=== PATIENT | male | born 1960 | race Hispanic/Latino ===

== ENCOUNTER → 2024-04-02 | Outpatient (CLI) | payer OTHER | END | disposition home or self-care (01) | LOC: RAH 13:26 | PROVIDERS: ATTEND Orthopaedic Surgery | DX: I70.201 Unspecified atherosclerosis of native arteries of extremities, right leg (principal); M17.11 Unilateral primary osteoarthritis, right knee | CPT/HCPCS: 93926 ==

== ENCOUNTER 2025-07-29 11:43 | Emergency (ER) | payer MEDICARE, OTHER ==
[~2025-07-29] VITALS: Ht 175.3 cm; Wt 95.3 kg
[2025-07-29 11:45] VITALS: BP 147/73; PULSE 65; RESP 20; TEMP 97.8
[2025-07-29] MEDS ORDERED: CLIN-141 PO (11:51)
[2025-07-29] MEDS ORDERED: IBUP-2077 PO (11:51)
--- NOTE | 2025-07-29 11:52 | ERN ---
ED Note History of Present Illness Stated Complaint: TOOTHACHE Chief Complaint: Tooth Ache/Pain Time Seen by MD: 11:45 Dictation: PATIENT IS A 65-YEAR-OLD MALE COMING IN WITH DENTAL PAIN TO TOOTH 14. THAT HE HAS HAD FOR SEVERAL WEEKS. THE TOOTH IS DECAY DOWN TO THE GUMLINE WITH MILD GINGIVAL ERYTHEMA. NO FACIAL SWELLING NO FEVER NO CHILLS NO NAUSEA VOMITING. STATES HE CALLED HIS DENTIST THIS MORNING AND HIS DENTIST CAN SEE HIM NEXT FRIDAY. Past Medical History RN Note Reviewed/Agreed w/PFSH: Yes Review of System Dictation CONSTITUTIONAL: NEGATIVE EXCEPT FOR HPI HEAD/FACE: NEGATIVE EXCEPT FOR HPI EENT: NEGATIVE EXCEPT FOR HPI DENTAL PAIN RESPIRATORY: NEGATIVE EXCEPT FOR HPI GASTROINTESTINAL/ABDOMINAL: NEGATIVE EXCEPT FOR HPI GENITOURINARY: NEGATIVE EXCEPT FOR HPI MUSCULOSKELETAL: NEGATIVE EXCEPT FOR HPI INTEGUMENTARY: NEGATIVE EXCEPT FOR HPI NEUROLOGICAL/PSYCH: NEGATIVE EXCEPT FOR HPI HEMATOLOGIC/LYMPHATIC: NEGATIVE EXCEPT FOR HPI ALL SYSTEMS NEGATIVE, EXCEPT NOTED ABOVE. 13 POINT REVIEW OF SYSTEMS ASSESSED AND ALL NEGATIVE EXCEPT FOR ABOVE. Physical Exam Dictation VITAL SIGNS REVIEWED GENERAL APPEARANCE: ALERT, ORIENTED X 3, NO ACUTE DISTRESS, WELL DEVELOPED, N OURISHED. HEAD AND FACE: NON-TRAUMATIC. EYES: PERRL, PINK CONJUNCTIVAS, EYELID NO TRAUMA, ANTERIOR CHAMBER WITH ARCUS SENILIS. EARS: PINNAS INTACT AND NO SIGNS OF TRAUMA OR ERYTHEMA EAR CANALS CLEAR AND NO DISCHARGE TM NO ERYTHEMA NOSE: NO DISCHARGE, NO BLEEDING. OROPHARYNX: MOUTH NORMAL, TONGUE PINK, PATIENT HAS A DECAY TOOTH DOWN TO THE GUMLINE NUMBER 14. MILD GINGIVAL ERYTHEMA. PHARYNX CLEAR,NO ERYTHEMA, TONSILS NO EXUDATES, NO ABSCESSES NOTED, MUCOUS MEMBRANE MOIST NECK: SUPPLE, NON-TENDER, NO THYROMEGALY, NO MASSES, NO JVD, NO BRUITS BREAST:DEFERRED CHEST:NO TENDERNESS, NO CREPITUS, NO PARADOXICAL MOVEMENT, NO RETRACTIONS LUNGS:CLEAR, WELL-VENTILATED, SYMMETRIC, NO RALES, NO WHEEZING, NO RHONCHI, NO STRIDOR, GOOD BREATH SOUNDS BILATERALLY HEART: REGULAR RATE, REGULAR RHYTHM, NO MURMUR, NO GALLOPS VASCULAR: NO PERIPHERAL EDEMA, ABDOMEN: SOFT, POSITIVE BOWEL SOUNDS, NONDISTENDED, NO GUARDING, NONTENDER, NO REBOUND, NO MASSES NO HEPATOMEGALY, NO SPLENOMEGALY, NO WYNN'S SIGN, NO HERNIAS. RECTAL: DEFERRED GENITAL: DEFERRED NEUROLOGICAL: NORMAL SPEECH, MOTOR FUNCTION INTACT, SENSORY FUNCTION INTACT MUSCULOSKELETAL: NECK NONTENDER, FULL RANGE OF MOTION, BACK NONTENDER, FULL RANGE OF MOTION, EXTREMITIES: NONTENDER, FULL RANGE OF MOTION SKIN: COLOR PINK, DRY, NO TURGOR, NO RASH, NO LACERATIONS, NO ABRASIONS, NO CONTUSIONS. LYMPHATIC: DEFERRED Results (Laboratory/Radiology) Labs Reviewed?: Yes ED Course ED Course Orders Procedure Category Date Status Time Acetaminophen 500mg PHA 07/29/25 Transmitted Tab (Tylenol 500mg T 12:00 1150/SPOKE TO PATIENT AT LENGTH AND HE IS AWARE THAT THERE IS NO DENTAL AVAILABILITY IN THE EMERGENCY ROOM. I TOLD HIM I COULD TREAT HIM FOR DENTALGIA AND INFECTION WITH CLINDAMYCIN FOLLOW UP WITH HIS PRIMARY CARE DOCTOR DENTIST FOR FURTHER EVALUATION AND MANAGEMENT Medical Decision Making MDM MEDICAL DECISION-MAKING BASED ON HPI AND PHYSICAL EXAMINATION. PATIENT WAS PROVIDED TYLENOL FOR PAIN DISCHARGED HOME WITH CLINDAMYCIN 300 MG Q SIX FOR 10 DAYS TOLD FOLLOW UP WITH HIS PRIMARY CARE DOCTOR OR DENTIST FOR FURTHER EVALUATION AND TREATMENT DX & DISP Disposition: Discharge Departure Impression: Primary Impression: Dental decay Additional Impression: Dentalgia Condition: Stable Scripts Ibuprofen (Ibuprofen 800 mg Tab) 800 Mg Tab 800 MG PO Q8H PRN for fever or pain, #30 TAB 0 Refills Prov: JONAS EM 07/29/25 Clindamycin HCl (Clindamycin HCl) 300 Mg Capsule 1 CAP PO QID for 10 Days, #40 CAP 0 Refills Prov: JONAS EMP 07/29/25 Additional Instructions: FOLLOW-UP WITH PRIMARY CARE PROVIDER IN 1 TO 2 DAYS. TAKE MEDICATIONS DIR ECTED HERE IN THE EMERGENCY ROOM. OKAY TO CONTINUE HOME MEDICATIONS UNLESS OTHERWISE DISCUSSED DURING YOUR VISIT IN THE EMERGENCY ROOM TODAY. RETURN TO YOUR NEAREST EMERGENCY ROOM IF SYMPTOMS WORSEN OR IF THERE IS NO IMPROVEMENT. CALL 911 IF YOU NEED IMMEDIATE ASSISTANCE. TAKE TYLENOL OR MOTRIN [id number] NEEDED AND IF NO CONTRAINDICATIONS ARE PRESENT. INCREASE ORAL HYDRATION. A WOUND CULTURE OR URINE CULTURE WAS ORDERED HERE IN THE EMERGENCY ROOM DEPARTMENT PLEASE FOLLOW-UP WITH PRIMARY CARE PROVIDER AND ADVISE THEM TO GET REPEAT PORTS FROM OUR FACILITY. IF YOU HAD ANY SAMIR WRAP/SPLINTS THAT WERE APPLIED HERE, PLEASE DO NOT REMOVE THEM UNTIL YOU SEE YOUR PRIMARY CARE OR SPECIALTY. TAKE ANTIBIOTICS DIRECTED UNTIL GONE, TAKE TWO CAPSULES FOR THE 1ST DOSE THEN DIRECTED UNTIL GONE. KEEP YOUR APPOINTMENT WITH YOUR DENTIST ON FRIDAY OR SEE YOUR PRIMARY CARE DOCTOR FOR REFERRAL Referrals: PAMELLA LEONARDO (PCP) Time of Disposition: 11:50 I have reviewed the case, and I agree with, Diagnosis and Plan JONAS EM [employer]INTENA[employer]CE SUPERVISOR Jul 29, 2025 11:52
== END 2025-07-29 13:04 | disposition home or self-care (01) ==
LOC: EDH 11:43
DX: K02.9 Dental caries, unspecified (principal); K08.89 Other specified disorders of teeth and supporting structures
CPT/HCPCS: 99283